=== PATIENT | male | born 1970 | race Caucasian/White ===

== ENCOUNTER 2019-04-26 07:35 | Inpatient (IN) ==
--- NOTE | 2019-04-03 12:53 | PAT Medication Instructions ---
Medication Instructions Date of Service April 03, 2019 Home Medications Men's Daily Gummies 1 dose PO QAM hydrochlorothiazide 50 mg PO QAM lisinopril 10 mg PO QAM metformin 500 mg PO BID DO NOT take the morning of surgery Men's Daily Gummies 1 dose PO QAM hydrochlorothiazide 50 mg PO QAM lisinopril 10 mg PO QAM metformin 500 mg PO BID Take evening before surgery metformin 500 mg PO BID Other Notes If you have any questions please call us at [phone] or [phone] or [phone] or [phone]
--- NOTE | 2019-04-04 12:50 | Anesthesiology Consultation ---
Date of Service April 04, 2019 Assessment & Plan (1) Encounter for pre-operative examination: - Check BSG AM DOS Chart Review Chart Review: Acceptable Risk for Surgery and Patient seen in Pre Admission Testing Teaching & Discussion Pre-Anesthesia Teaching/Discussion Notes: Instructed NPO after midnight before surgery,except medications with 15 cc of water. Medication instructions provided according to the PAT guidelines. History Surgery Operation Date: 04/26/19 10:25 Proposed Procedures p L3-S1 Decompression and Fusion, Spinal Cord Monitoring - David Kaba DO Height/Weight Height: 5 ft 8 in Weight: 109.9 kg Allergies Allergy/AdvReac Type Severity Reaction Status Date / Time hydrocodone Allergy Intermediate vomiting Verified 03/29/19 09:01 oxycodone Allergy Mild Vomiting Verified 03/29/19 09:01 Medications Home Medications Medication Instructions Recorded Confirmed Last Taken Men's Daily Gummies 1 dose PO QAM 08/29/18 03/29/19 09/04/18 hydrochlorothiazide 50 mg PO QAM 08/29/18 03/29/19 09/04/18 lisinopril 10 mg PO QAM 03/29/19 03/29/19 Unknown metformin 500 mg PO BID 03/29/19 03/29/19 Unknown Nexium 04/04/19 Unknown Past Medical History Medical History Acid reflux CONTROLLED Diabetes mellitus, type 2 NIDDM Hypertension Kidney stones Lumbar herniated disc B/L LE RADICULOPATHY Obesity Sleep apnea CPAP BUT NOT USING SINCE WEIGHT LOSS Exercise / Class Metabolic Activity II 4-5 Yardwork/Stairs/Walk up hill Past Family History Family History Family/Other Family hx of colon cancer paternal uncle Past Surgical History Surgical History History of colonoscopy 09/05/18: MAC sedation at [facility] History of laminectomy x2 History of lithotripsy x2 History of sinus surgery 11/17/10: LMA placed at [facility] History of tooth extraction WISDOM TEETH Past Anesthesia History No Family Hx of Anesthesia Complications and Other "Slow to wake" after initial back surgery- no issues with subsequent surgeries. History of PONV No Hx of PONV and Hx of Motion Sickness (OCCASIONAL) Social History Smoking Status: Never smoker Do You Dip or Chew Tobacco: No Hx Alcohol Use: Yes Alcohol type: beer alcohol intake frequency: holidays/special occasions only Hx Substance Use: No substance use type: does not use Review of Systems Patient denies chest pain, shortness of breath, cough, wheezing, palpitations. Physical Exam Vital Signs VITALS BP 112/71 P 79 TEMP 98.0 SP02 94%RA RESP 16 PHYSICAL Full neck and c-spine range of motion. Full TMJ range of motion. TMD 3 finger breaths Mallampati Score 2 Dentition: intact Lungs: clear throughout to auscultation Cardiac: regular rate and rhythm, no murmurs noted Spine: normal Carotid arteries: negative bruit Extremities: no edema Short thick neck Testing Laboratory Results 01/24/19 HGBA1C 6.6% (pt then started on Metformin) 04/04/19 13:15 04/04/19 13:15 04/04/19 04/04/19 04/04/19 13:15 13:15 Unknown PT 10.3 INR 1.0 APTT 25.5 Urine Color Yellow Urine Appearance Clear Urine pH 6.5 Ur Specific Bruni 1.022 Urine Protein Negative Urine Glucose (UA) Negative Urine Ketones Negative Urine Nitrite Negative Ur Leukocyte Esterase Negative Blood Type A Positive Antibody Screen NEGATIVE Electrocardiogram Date: 01/23/19 SR at 84bpm. Chest X-Ray Date: 04/04/19 No acute process. Hypoinflation with bronchovascular crowding.
--- NOTE | 2019-04-04 13:44 | XRay Report ---
XR chest Pre-admission PA/Lat HISTORY: 48 years-old Male pat preoperative exam. No acute chest complaints COMPARISON: [facility] 08/27/2018 TECHNIQUE: PA and lateral views of the chest FINDINGS: Cardiomediastinal and hilar silhouettes are within normal limits. The lungs are hypoinflated with bro nchovascular crowding. There is no pneumothorax, pleural effusion, focal airspace consolidation or ov ert pulmonary edema. The bones of the chest appear grossly intact. Degenerative changes are noted thr oughout the spine. IMPRESSION: 1. No acute process. 2. Hypoinflation with bronchovascular crowding. The above report was generated using voice recognition software. It may contain grammatical, syntax o r spelling errors. Electronically signed by: Ovidio Mesa M.D. 04/04/2019 1:42 PM
[2019-04-04 14:02] LABS: Basophils # (auto) 0.03 K/uL (0-0.2); Basophils % (auto) 0.6 %; Eosinophils % (auto) 1.9 %; Hematocrit (blood only) 41.7 % (42-52); Hemoglobin 14.8 g/dL (14.0-18.0); Immature Granulocytes # (auto) 0.06 K/uL (0.00-0.02); Immature Granulocytes % (auto) 1.1 %; Lymphocytes # (auto) 1.46 K/uL (1.2-3.4); Lymphocytes % (auto) 27.1 %; Mean Corpuscular Hgb Conc 35.5 g/dL (32-36); Mean Corpuscular Volume 87.4 fL (80-100); Monocytes # (auto) 0.69 K/uL (0.11-0.59); Monocytes % (auto) 12.8 %; Neutrophils # (auto) 3.05 K/uL (1.4-6.5); Neutrophils % (auto) 56.5 %; Platelet Count 249 K/uL (130-400); RDW Coefficient of Variation 13.2 % (11.5-14.5); RDW Standard Deviation 42.3 fL (36.4-46.3); Red Blood Count 4.77 M/uL (4.7-6.1); White Blood Count 5.39 K/uL (4.8-10.8)
[2019-04-04 14:20] LABS: Appearance Urine Clear (Clear); Bilirubin Urine Negative (Negative); Blood Urine Negative (Negative); Color Urine Yellow; Glucose Urine UA Negative (Negative); Ketones Urine Negative (Negative); Leukocyte Esterase Urine Negative (Negative); Nitrite Urine Negative (Negative); Protein Urine Negative (Negative); Specific Gravity Urine 1.022 (1.000-1.030); Urobilinogen Urine Negative (Negative); pH Urine 6.5 (4.5-7.5)
[2019-04-04 14:28] LABS: BUN Creatinine Ratio 17.2 (10-20); Creatinine Clr Calc Pharmacy 106.4 ml/min; Est GFR (African American) 100.8; Est GFR (Non-African American) 86.9; Potassium 4.2 mmol/L (3.5-5.1)
[2019-04-04 15:05] LABS: Partial Thromboplastin Ratio 0.9; Partial Thromboplastin Time 25.5 Seconds (21.0-31.0); Prothrombin Time 10.3 Seconds (9.0-12.0)
[~2019-04-26 07:35] MED LIST: ACETAMINOPHEN 500 MG TAB PO SCH; CEFAZOLIN 2000MG 2,000 MG/15 ML SYR IV SCH; CeleBREX 200 MG CAP PO SCH; GABAPENTIN 300 MG x 2 PO SCH; LR 15ML/HR IV SCH; PROPOFOL IV EMULSION 10 MG/ML 100 ML VIAL IV ONE
[2019-04-26] MEDS ORDERED: fentaNYL citrate 100 MCG/2 ML VIAL ONE ×2 (08:51→13:33)
[2019-04-26] MEDS ORDERED: MIDAZOLAM HCL 1 MG/ML 2ML VIAL ONE (08:51)
[2019-04-26] MEDS ORDERED: HYDROmorphone INJ 2 MG/ML SYR/VIAL ONE (08:52)
--- NOTE | 2019-04-26 10:23 | History & Physical Bridge Note ---
Date of Service April 26, 2019 History & Physical Bridge Note I have examined the patient, reviewed the History & Physical and in the interval since the performance of the History & Physical I have noted the following changes of clinical significance: no changes noted
--- NOTE | 2019-04-26 10:24 | History & Physical Report ---
Date of Service April 26, 2019 Assessment & Plan (1) Spinal stenosis, lumbar region with neurogenic claudication: Decompression and fusion L3-S1 Present on Admission?: Yes History of Present Illness Chief Complaint: Back and bilateral leg pain Primary Care Provider: Bernie Fonseca DO This is a 48-year-old male who presents with chronic persistent back and bilateral leg pain. After failing extensive course of nonoperative care is here for surgical intervention. Allergies Allergy/AdvReac Type Severity Reaction Status Date / Time hydrocodone Allergy Intermediate vomiting Verified 04/26/19 08:03 oxycodone Allergy Mild Vomiting Verified 04/26/19 08:03 Home Medications Home Medications Medication Instructions Recorded Confirmed Type Men's Daily Gummies 1 dose PO QAM 08/29/18 04/26/19 History hydrochlorothiazide 50 mg PO QAM 08/29/18 03/29/19 History lisinopril 10 mg PO QAM 03/29/19 03/29/19 History metformin 500 mg PO BID 03/29/19 04/26/19 History Nexium 04/04/19 History esomeprazole magnesium [Nexium 20 mg PO DAILY 04/26/19 04/26/19 History 24HR] Past Med/Surg History Medical History Acid reflux CONTROLLED Diabetes mellitus, type 2 NIDDM Kidney stones Lumbar herniated disc B/L LE RADICULOPATHY Obesity Sleep apnea CPAP BUT NOT USING SINCE WEIGHT LOSS Family History Family/Other Family hx of colon cancer paternal uncle Social History Preferred Language: Swiss Communication Ability: Effective 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
[2019-04-26] MEDS ORDERED: BUPIVACAINE/EPINEPHRINE 0.5% MPF 1:200,000 30 ML VIAL ONE (10:28)
[2019-04-26] MEDS ORDERED: BACITRACIN INJ 50,000 UNIT VIAL ONE (10:28)
[2019-04-26] MEDS ORDERED: ONDANSETRON INJ 2 MG/ML 2 ML VIAL IV PRN ×2 (10:35→16:46)
[2019-04-26] MEDS ORDERED: HYDROmorphone INJ 1 MG/ML SYRINGE IV PRN (10:35)
[2019-04-26] MEDS ORDERED: ATROPINE SULFATE 0.1 MG/ML 10ML SYR IV PRN (10:35)
[2019-04-26] MEDS ORDERED: LABETALOL HCL IV 5 MG/ML 20ML IV PRN (10:35)
[2019-04-26] MEDS ORDERED: PROPOFOL IV EMULSION 10 MG/ML 20 ML VIAL IV ONE (11:26)
[2019-04-26] MEDS ORDERED: ONDANSETRON INJ 2 MG/ML 2 ML VIAL ONE (11:26)
[2019-04-26] MEDS ORDERED: LIDOCAINE HCL 2% 2 ML VIAL/AMP(20MG/ML) INFIL ONE (11:26)
[2019-04-26] MEDS ORDERED: LARYING-O-JET KIT (LTA) ONE (11:26)
[2019-04-26] MEDS ORDERED: ROCURONIUM BROMIDE 10 MG/ML 5 ML VIAL ONE (11:26)
[2019-04-26] MEDS ORDERED: GLYCOPYRROLATE 0.2 MG/ML VIAL ONE (11:26)
[2019-04-26] MEDS ORDERED: NEOSTIGMINE METHYLSULFATE 1 MG/ML 10ML VIAL ONE (11:26)
[2019-04-26] MEDS ORDERED: DEXAMETHASONE SOD INJ 4 MG/ML VIAL ONE (11:26)
[2019-04-26] MEDS ORDERED: FLOSEAL HEMOSTATIC MATRIX 10ML TOP ONE (11:44)
--- NOTE | 2019-04-26 13:40 | Fluoroscopy Report ---
FL lumbar spine 2-3V CLINICAL HISTORY: 48 years-old Male presenting with L3-S1 DECOMPRESSION AND FUSION WITH POSSIBLE INTE RBODIES. TECHNIQUE: 1 fluoroscopic image(s) recorded as part of an intraoperative procedure. COMPARISON: None. FINDINGS/IMPRESSION: Bilateral posterior transpedicular screw and gianni fixation of L3-S1 with interbody spacers at L4-5 and L5-S1. Laminectomy defects at L4-L5. Please see surgical report for further details. Fluoroscopy dosage (mGy): 15.45. Fluoroscopy time: 25.8 seconds. Number or time of high level fluoroscopy (HLF), digital spot, or digital subtraction images: 0. Electronically signed by: Jean Jacobs M.D. 04/26/2019 1:38 PM
--- NOTE | 2019-04-26 13:55 | Operative Report ---
Post Operative Report Pre & Post Diagnosis Operation Date: 04/26/19 09:25 Pre-Op Diagnosis: LUMBAR SPINAL STENOSIS W/NEUROGENIC CLAUDICATION Post-Op Diagnosis: LUMBAR SPINAL STENOSIS W/NEUROGENIC CLAUDICATION Procedure Operation Date: 04/26/19 09:25 Actual Procedure#1 lumbar #1 revision decompression L3-4 L4-5 L5-S1 with bilateral medial facetectomies foraminotomies. #2 posterior spinal fusion L3-4 L4-5 L5-S1 per #3 placement posterior segmental instrumentation L3-4 L4-5 L5-S1. #4 interbody fusion L4-5 L5-S1 per #5 placement of titanium 12 x 26 m cage L4-5 L5-S1 per #6 placement of local autograft in the posterior lateral gutters. #7 placement Feese collagen sponge, master graft in the posterior lateral gutters ostial amp and interbody space. Surgeon David Kaba DO [employer] None Estimated Blood Loss 450 Findings See Below Patient is 5 foot 8 inches tall weighing 106.4 kg with a BMI of 35.7. The patient's body habitus added significant technical difficulty requiring her deepest retractors and adding at least 25% increase in operative time. Specimens None Indications This is a 48-year-old male resents with recurrent back and leg pain. After failing extensive course of nonoperative care is here for surgical intervention. Description of Procedure Patient was met with identified and informed consent obtained. He was then taken to the operative suite underwent intubation and placed in a prone position the Mark table on top of the Carlitos frame. All bony prominences well-padded eyes inspected to ensure no external pressure placed upon the peer at this point the lumbar spine was prepped and draped in normal sterile fashion. Sharp dissection with the assistance of Bovie cautery was performed down to and exposing the remaining lamina transverse processes of L3-L4-L5 and sacral ala bilaterally. From a caudal cephalad fashion a revision complete laminectomy of L5 L4 and L3 was performed including bilateral medial facetectomies and foraminotomies to address stenosis. Pedicle fusion and placed in L3 L4-5 with assistance of fluoroscopy the appropriate size gianni placed. By way of a transforaminal approach on the left complete discectomy of L4-5 S1 was performed in plate graded to subcortical mean bone and a 12 x 26 mm titanium cage filled with ostium bone graft tapped in position. Then proceeded L for [address] of a transforaminal approach and left complete discectomy performed in plate graded to subcortical bleeding bone and again a 12 x 26 mm titanium cage filled with osteo-amp bone graft tapped in position. The rods were then locked in final position bilaterally. The transverse processes of L3-L4-L5 and sacral ala bur to subcortical bleeding bone. Infuse collagen sponge master graft and local autograft placed in the posterior lateral gutters. 15 round MICHELET drain inserted. The incision was then closed with 1 Vicryl in the fascia 2-0 Vicryl substantially and 4 Monocryl for final closure. Steri-Strips dressings placed. Patient will continue PACU stable disc. Please note spinal cord monitoring used throughout the entire procedure no changes noted. I attest to the content of the Intraoperative Record and any orders documented therein. Any exceptions are noted below.
--- NOTE | 2019-04-26 15:59 | Anesthesiology Progress Note ---
Date of Service April 26, 2019 Anesthesia Post Procedure Vital Signs Vital Signs: Temp Pulse Pulse Resp BP Pulse Ox 04/26/19 15:50 85 13 114/81 95 04/26/19 15:40 98 H 16 115/89 94 04/26/19 15:30 78 15 125/91 92 04/26/19 15:20 36.9 C 86 13 103/90 94 04/26/19 15:10 85 20 108/78 95 04/26/19 15:00 88 20 109/84 98 04/26/19 14:50 83 20 136/101 H 94 04/26/19 14:40 90 21 154/99 H 95 04/26/19 14:30 89 19 133/105 H 96 04/26/19 14:20 86 20 149/102 H 93 04/26/19 14:14 36.4 C L 90 15 142/109 H 92 04/26/19 11:51 36.9 C 100 H 18 117/79 93 Pain Intensity Lower Back: Pain Intensity: 0 Transfer of Care Handoff Completed per policy Notes Mental Status: alert / awake / arousable Patient Amnestic to Procedure: Yes Nausea / Vomiting: adequately controlled Pain: adequately controlled Airway Patency, RR, SpO2: stable & adequate BP & HR: stable & adequate Hydration State: stable & adequate Anesthetic Complications: no major complications apparent
[2019-04-26] MEDS ORDERED: PROMETHAZINE HCL 12.5 MG in SODIUM CHLORIDE 0.9% 50 ML IV PRN (16:46)
[2019-04-26] MEDS ORDERED: ACETAMINOPHEN 1,000 MG/100 ML VIAL IV PRN (16:46)
[2019-04-26] MEDS ORDERED: MAGNESIUM HYDROXIDE SUSP 30 ML UDC PO PRN (16:46)
[2019-04-26] MEDS ORDERED: DO NOT ADMINISTER PNEUMOCOCCAL VACCINE PRN (16:46)
[2019-04-26] MEDS ORDERED: BISACODYL 10 MG SUPP PR PRN (16:46)
[2019-04-26] MEDS ORDERED: LORazepam 0.5 MG TAB PO PRN (16:46)
[2019-04-26] MEDS ORDERED: FAMOTIDINE 20 MG TAB PO PRN (16:46)
[2019-04-26] MEDS ORDERED: SOD PHOSPHATE/SOD BIPHOSPHATE ENEMA 132 ML BTL PR PRN (16:46)
[2019-04-26] MEDS ORDERED: HYDROmorphone INJ 0.5 MG/0.5 ML SYR IV PRN (16:46)
[2019-04-26] MEDS ORDERED: METOCLOPRAMIDE HCL INJ 5 MG/ML 2 ML VIAL IV PRN (16:46)
[2019-04-26] MEDS ORDERED: ALUMINUM/MAGNESIUM SUSP 30 ML UDC PO PRN (16:46)
[2019-04-26] MEDS ORDERED: DO NOT ADMINISTER FLU VACCINE PRN (16:46)
[2019-04-26] MEDS ORDERED: ONDANSETRON 4 MG TAB PO PRN (16:46)
[2019-04-26] MEDS ORDERED: LORazepam 0.5 MG/1 ML VIAL IV PRN (16:46)
[2019-04-26] MEDS: SODIUM CHLORIDE 0.9% 1000ML 1,000 ML IV SCH (17:18)
[2019-04-26] MEDS: KETOROLAC 30 MG/ML VIAL IV SCH ×2 (17:18→22:09)
[2019-04-26] MEDS: CEFAZOLIN 2000MG 2,000 MG/15 ML SYR IV SCH (18:59)
[2019-04-26] MEDS: DOCUSATE SODIUM/SENNA 50/8.6MG TAB PO SCH (20:22)
[2019-04-26] MEDS: TRAMADOL HCL 50 MG TABLET PO PRN (21:11)
[2019-04-27] MEDS: SODIUM CHLORIDE 0.9% 1000ML 1,000 ML IV SCH (00:01)
[2019-04-27] MEDS: KETOROLAC 30 MG/ML VIAL IV SCH ×2 (04:04→11:49)
[2019-04-27] MEDS: CEFAZOLIN 2000MG 2,000 MG/15 ML SYR IV SCH (04:04)
[2019-04-27] MEDS: POLYETHYLENE (MIRALAX) 17 GM PACK PO SCH ×3 (05:10→19:31)
[2019-04-27 06:56] LABS: Hematocrit (blood only) 34.6 % (42-52); Immature Granulocytes # (auto) 0.08 K/uL (0.00-0.02); Immature Granulocytes % (auto) 0.4 %; Lymphocytes # (auto) 0.84 K/uL (1.2-3.4); Lymphocytes % (auto) 4.5 %; Mean Corpuscular Hgb Conc 34.7 g/dL (32-36); Mean Corpuscular Volume 88.7 fL (80-100); Mean Platelet Volume 8.8 fL (7.4-10.4); Monocytes # (auto) 1.65 K/uL (0.11-0.59); Monocytes % (auto) 8.9 %; Neutrophils # (auto) 15.93 K/uL (1.4-6.5); Neutrophils % (auto) 86.2 %; Platelet Count 218 K/uL (130-400); RDW Coefficient of Variation 13.3 % (11.5-14.5)
[2019-04-27 07:28] LABS: BUN Creatinine Ratio 18.3 (10-20); Calcium 8.6 mg/dl (8.5-10.1); Creatinine Clr Calc Pharmacy 91.9 ml/min; Est GFR (African American) 86.1; Est GFR (Non-African American) 74.3; Potassium 4.7 mmol/L (3.5-5.1)
[2019-04-27] MEDS: PANTOprazole 40 MG TAB PO SCH (08:48)
[2019-04-27] MEDS: LISINOPRIL 10 MG TAB PO SCH (08:48)
[2019-04-27] MEDS: hydroCHLOROthiazide 25 MG TAB PO SCH (08:49)
[2019-04-27] MEDS: TRAMADOL HCL 50 MG TABLET PO PRN ×3 (08:54→20:24)
--- NOTE | 2019-04-27 10:38 | Orthopedic Progress Note ---
Date of Service April 27, 2019 Assessment & Plan (1) Spinal stenosis, lumbar region with neurogenic claudication: This time we will continue physical therapy monitor his MICHELET output anticipate discharge home Monday. Present on Admission?: Yes Subjective Back pain is controlled leg symptoms markedly improved. Physical Exam Physical Exam: Patient is in the chair at the bedside. He appears comfortable. Is good strength testing. Results & Data Vital Signs (Past 12 Hours) Vital Signs Temp Pulse Resp BP Pulse Ox 04/27/19 08:00 36.6 C 87 16 125/82 97 04/27/19 03:44 36.5 C 86 19 105/68 92 04/26/19 23:02 36.3 C L 91 H 19 121/65 93
[2019-04-27] MEDS: ACETAMINOPHEN 500 MG TAB PO PRN (19:31)
[2019-04-27] MEDS: DOCUSATE SODIUM/SENNA 50/8.6MG TAB PO SCH (20:25)
[2019-04-28] MEDS: TRAMADOL HCL 50 MG TABLET PO PRN ×2 (00:11→07:53)
[2019-04-28] MEDS: POLYETHYLENE (MIRALAX) 17 GM PACK PO SCH ×4 (00:11→18:03)
[2019-04-28] MEDS: ACETAMINOPHEN 500 MG TAB PO PRN ×3 (05:09→21:38)
--- NOTE | 2019-04-28 07:28 | Orthopedic Progress Note ---
Date of Service April 28, 2019 Assessment & Plan (1) Spinal stenosis, lumbar region with neurogenic claudication: Patient is stable postoperative day #2. We will continue with GI DVT prophylaxis. His MICHELET drain is still putting out a fair amount we will have him continue to work with mobilization and likely discharge him to home tomorrow. Subjective Patient was seen this morning in room 315 postoperative day #2. He is having some tightness in the back itself but no pain going down the legs. He did quite a bit of walking yesterday and thinks he may have overdone it. He denies any nausea. He has not yet had a bowel movement. He denies any other numbness, tingling, or paresthesias. Physical Exam Physical Exam: On exam patient is alert and oriented. His abdomen soft nontender his calves are supple nontender strength and sensation both intact dressings clean dry and intact. Results & Data Vital Signs (Past 12 Hours) Vital Signs Temp Pulse Resp BP Pulse Ox 04/27/19 23:33 36.5 C 85 16 105/65 97
[2019-04-28] MEDS: hydroCHLOROthiazide 25 MG TAB PO SCH (08:51)
[2019-04-28] MEDS: LISINOPRIL 10 MG TAB PO SCH (08:51)
[2019-04-28] MEDS: PANTOprazole 40 MG TAB PO SCH (08:51)
[2019-04-28] MEDS: DOCUSATE SODIUM/SENNA 50/8.6MG TAB PO SCH (20:49)
[2019-04-28] MEDS ORDERED: Nursing to Pharmacy Communication ONE (21:52)
[2019-04-29] MEDS: ACETAMINOPHEN 500 MG TAB PO PRN ×2 (05:33→16:37)
[2019-04-29] MEDS: PANTOprazole 40 MG TAB PO SCH (08:50)
[2019-04-29] MEDS: hydroCHLOROthiazide 25 MG TAB PO SCH (08:50)
[2019-04-29] MEDS: LISINOPRIL 10 MG TAB PO SCH (08:50)
[2019-04-29] MEDS: TRAMADOL HCL 50 MG TABLET PO PRN ×3 (08:52→17:20)
--- NOTE | 2019-04-29 11:43 | Discharge Summary ---
Date of Service April 29, 2019 Admission HPI Per Admitting Provider This is a 48-year-old male who presents with chronic persistent back and bilateral leg pain. After failing extensive course of nonoperative care is here for surgical intervention. Principal Diagnosis Lumbar spinal stenosis with neurogenic claudication Discharge Data Allergies Allergy/AdvReac Type Severity Reaction Status Date / Time hydrocodone Allergy Intermediate vomiting Verified 04/26/19 08:03 oxycodone Allergy Mild Vomiting Verified 04/26/19 08:03 Consultations 04/26/19 16:46 Consult Case Management - Discharge Planning Routine Procedures Performed Operation Date: 04/26/19 09:25 Actual Procedures p L3-S1 Decompression and Fusion, Spinal Cord Monitoring(Not Applicable) - David Kaba DO Ordered Studies 04/26/19 09:25 FL fluoroscopy <1hr Routine FL lumbar spine 2-3V Routine Hospital Course (1) Spinal stenosis, lumbar region with neurogenic claudication: Patient underwent multilevel lumbar decompression fusion tolerated this well was taken to the orthopedic floor postoperative. Postop day #1 he was up and ambulating progressed to postop day #2. MICHELET drain decreasing appropriately. Pain well controlled. Subsequently discharged home. Discharge orders and in structions can be found chart for further review. Total Time Total Time Spent Total Time Spent (In Minutes): 20 minutes Discharge Plan Discharge Items Patient Disposition: Home - Self-Care Reason For Visit: LUMBAR SPINAL STENOSIS W/NEUROGENIC CLAUDICATION Discharge Diagnosis: lumbar stenosis Discharge Goals: Decrease discomfort Activity: Per 'Additional Instructions' section Non-emergency contact: Primary Care Provider Call non-emergency contact if: you have any medication questions Follow-up/Referrals: Bernie Fonseca DO [Primary Care Provider] - Diet: Regular Addtl Provider Instructions: ACTIVITY RECOMMENDATIONS: SELF CARE INSTRUCTIONS AFTER THORACIC/LUMBAR FUSIONS 1. You may walk to your tolerance. It is good exercise for your legs and back. Expect some back and intermittent leg aches and pains. 2. You may perform "counter-top" level activities (make a sandwich, edna with a project, etc.). 3. No bending or lifting of more than 10 pounds or back twisting of any nature (roll like a log when turning in bed). 4. You may ride in a car for 20-30 minutes at a time. No driving until after your first visit with your doctor. 5. Frequent changes of position and restricting sitting to 30 minutes at a time will help limit the amount of back spasms and stiffness you may experience. 6. You may discontinue the use of ambulatory aids (cane, crutches, etc.) once your strength and confidence allow. 7. You may glass wool blanket machine feeder the shower and let water strike your incision when you arrive home at least once daily. Do not take a tub bath, sit in a hot tub or go into a swimming pool until after your first recheck in the office. SPECIAL CARE INSTRUCTIONS: VERY IMPORTANT TO READ AND REVIEW A. Your surgical incision has been closed with a cosmetic suture under the skin that will dissolve in about 6 weeks. In 14 days, you can use a pair of clean scissors and cut the suture that is left outside of the skin at the ends of your incision. 1. The small skin tapes can be removed 7 days after surgery if they have not fallen off by that point. 2. You may keep the wound open to air as much as possible to promote healing after post-op day number 5 unless told otherwise by your doctor. 3. If you think the wound looks like it is becoming infected (redness or worsening drainage) and/or you are experiencing fever, chill or worsening back pain and muscle spasms, contact the office so that we may evaluate you as soon as possible. B. Complications are uncommon, but please contact us if you have any signs or symptoms of: 1. wound infection (fever higher than 102.5 degrees F, redness, separation of wound, drainage, or increasing pain from the incision) 2. blood clots in legs (pain, swelling, redness and warmth in legs) 3. urinary tract infection (fever higher than 102.5 degrees F, burning upon urination or increased frequency of urination) 4. nerve problems (inability to walk on your toes or heels, numbness, loss of bowel or bladder control) 5. any other symptoms that concern you C. Please call the office at if you have any concerns or ques tions about your operation or recovery. D. No smoking! Smoking drastically decreases the chance of a solid fusion. E. Do not take any anti-inflammatory medications (Indocin, Advil, Motrin, Aspirin, Naprosyn, etc.) as these may inhibit the chance of a solid fusion. Tylenol is okay to take for pain. MANAGING PAIN AFTER SPINAL SURGERY 1. Narcotic medication is intended for short-term use and will be provided for surgical pain. Surgical pain usually lasts for a period of 4-6 weeks. Narcotic medication includes Percocet, Vicodin, Darvocet, Tylenol #3 or Lortab. 2. Longer-term pain is more appropriately treated with non-narcotic medication such as Tylenol ES. 3. Muscle spasm is not appropriately treated with narcotics. Muscle relaxers such as Soma, Flexeril or Skelaxin can be used along with Tylenol ES. 4. Remember that we all live with some "aches and pains". This is not unusual or uncommon after an injury or as we get older. a. Back pain is expected and may include muscle spasms for 4 to 6 weeks after surgery. The pain should gradually improve. If the pain worsens for no apparent reason, please contact the office. b. Intermittent leg pain may also be experienced and should not be concerned about unless it worsens for no apparent reason. If so, please contact the office. 5. We will provide appropriate medication within the normal guidelines of their prescribed use. We will also be very cautious and aware of potential abuse and extended duration of patients' medication needs. a. Pain medications are for your comfort and to assist with sleep and rest so that the tissue can heal. They are not provided in order to return to normal activity and should not be used through the day. To do so or worsening pain at night can result from ongoing tissue damage and development of tolerance to the prescribed medicine. 6. Please allow 2-3 days to process refills. Prescriptions will not be mailed but must be picked up at the office. FOLLOW UP VISIT: Keep your scheduled follow-up appointment. Any questions, please call the office at . Prescriptions: New tramadol 50 mg Tablet 50 mg PO Q4H PRN (Reason: Pain) Qty: 30 RF: 0 Continued metformin 500 mg Tablet 500 mg PO BID RF: 0 lisinopril 10 mg Tablet 10 mg PO QAM RF: 0 Nexium RF: 0 esomeprazole magnesium [Nexium 24HR] 20 mg Capsule,Delayed Release(Dr/Ec) 20 mg PO DAILY RF: 0 hydrochlorothiazide 50 mg Tablet 50 mg PO QAM RF: 0 Men's Daily Gummies 200 mcg Tablet,Chewable 1 dose PO QAM RF: 0 Stand-Alone Forms: [facility], [facility] Discharge Orders: Discharge Order (Routine); Ordered 04/29/19 Ordered By: David Kaba Admission Data Admit Date/Time: 04/26/19 14:00 Attending Provider: David Kaba Admit Provider: David Kaba Primary Care Provider: Bernie Fonseca Service: Surgical Services Other Interventions: Discharge Summary Assessment (RN) Last Done: 04/29/19 11:30
== END 2019-04-29 17:53 | disposition home or self-care (01) | DRG 455 ==
LOC: ASU 07:35 → 3E 14:00

== ENCOUNTER 2025-03-24 14:20 | Observation (INO) ==
--- NOTE | 2025-03-24 14:41 | Emergency Department Note ---
Impression & Plan Chest pain Admission ED Provider Note HPI: History obtained from patient. The patient is a 54-year-old gentleman who presents the emergency department with a chief complaint of transient episodes of chest pain today. Patient states that when he was exerting himself turning down a swimming pool today he was getting substernal episodes of chest pain. Patient states these would last 1 to 2 minutes and then resolve when he rested. Patient states at the time he did feel short of breath. On arrival here to the ED the patient states he no longer is having the pain, he does admit to a very light "pressure". Patient is otherwise hemodynamically stable on arrival, he appears to be in no acute distress on my initial assessment. ROS: - Per HPI Differential Diagnosis: ACS, pulmonary embolism, aortic dissection, gastritis, pleuritis, costochondritis, amongst other potential pathologies. *Outpatient medications and allergy history reviewed. PE: General: Alert HEENT: Normocephalic, trachea midline Eyes: Extraocular eye movement is intact, no scleral erythema Pulmonary: Clear to auscultation bilaterally, no wheezing Cardio: Regular rate and rhythm GI: Abdomen is soft to palpation : No suprapubic tenderness MSK: No evidence of trauma or malformation of the extremities, no edema Skin: No evidence of rash Neuro: Alert, no focal deficits Psychiatric: Cooperative INDEPENDENT INTERPRETATIONS: court recording monitor: (As interpreted by myself): - An order was placed for continuous cardiac monitoring - Patient was noted to be in sinus rhythm with a rate of 95 EKG: (As interpreted by myself): Rate: 86 Rhythm: Normal sinus rhythm Intervals: Within normal limits ST changes: No ST elevation Time: 1429 Chest x-ray: (As interpreted by myself): No acute disease Interventions provided in ED: - Aspirin Medical Decision Making: IV was established and lab work obtained, patient was placed on night monitor. Lab work shows a mild leukocytosis of 15.12, hemoglobin is normal, platelet count is normal, D-dimer was obtained that is within normal limits, low suspicion for PE. CMP does not show any evidence of any critical findings. Troponin is negative. EKG per my interpretation does not show any evidence of any acute ischemic changes. Chest x-ray does not show any evidence of acute disease. On my reassessment the patient states he still having some mild chest pressure on the left side of his chest. At this time he states he would prefer admission versus outpatient management which I think is reasonable given the exertional nature of his chest pain. His heart score is 4. He does have multiple risk factors including hyperlipidemia, obesity, and diabetes. I discussed the patient's presentation with the on-call hospitalist for [facility], Dr. Roberts, the patient was placed for admission in stable condition for further care. Consultants/Discussions held with other healthcare providers: - Hospitalist, Dr. Roberts Disposition discussion held by myself with: - Patient and patient's at the bedside Diagnosis: 1. Chest pain, acute, exertional 2. History of diabetes 3. History of hyperlipidemia Disposition: Admission Shimon Khan DO Emergency Medicine Past Med/Surg History Problem List (Updated 03/24/25 @ 16:03 by Shimon Khan DO) Chest pain (Acute) Hypertriglyceridemia Fatty liver Sensorineural hearing loss (SNHL) of both ears Idiopathic polyneuropathy Lumbosacral radiculopathy Kidney stones Abnormal AST and ALT (Chronic) Hypertension (Chronic) Acid reflux (Chronic) Lumbar herniated disc (Chronic) B/L LE RADICULOPATHY Erectile dysfunction Tinnitus Sleep apnea (Chronic) CPAP. "Severe sleep apnea/hypopnea with respiratory event index of 31 and an oxygen edu of 61%." Obesity (Chronic) Spinal stenosis, lumbar region with neurogenic claudication Type 2 diabetes mellitus (Chronic) Medical History (Updated 03/24/25 @ 16:03 by Shimon Khan DO) Nephrolithiasis Peripheral neuropathy History of COVID-19 11/2021>resolved 11/2023, home test, not hosp; mild symptoms for 1 day>resolved History of kidney stones Surgical History Hx of ventral hernia repair 03/2023 [facility] History of back surgery 01/31/23>T3 CAGING/FUSION DONE [facility] IN [place] History of tonsillectomy History of lumbar fusion (01/31/23) L2-L3 H/O left knee surgery Status post surgery (12/20/19) R SI joint fusions Slow to wake up after anesthesia History of lumbar fusion (04/26/19) revision decompression L3-L4, L4-L5, L5-S1 w/ b/l facetectomies foraminotomies, post fusion L3-S1, plmt post instrumentation L3-S1, interbody fusion L4-L5, L5-S1 History of sinus surgery (11/2010) 11/17/10: LMA placed at [facility] History of colonoscopy 09/05/18: MAC sedation at [facility] History of lithotripsy x2 History of tooth extraction WISDOM TEETH History of laminectomy x2 Family History Mother Depression Hypertension Environmental allergies Grandmother Diabetes Grandfather Diabetes Father Kidney stones Stroke Uncle Colorectal cancer Prostate cancer Myocardial infarction Aunt Myocardial infarction Other No family history of adverse response to anesthesia No family history of bleeding disorder Denies family history of Breast cancer Social History (Updated 11/15/24 @ 08:30 by Pino Parker DO) Smoking Status: Never smoker Second Hand Exposure: Yes (hx growing up); Do You Dip or Chew Tobacco: No; Hx Alcohol Use: Yes (very rare use-couple per year) Hx Substance Use: No Preferred Language: Bulgarian Communication Ability: Effective Visual Impairment: No Limitations Hearing Ability: Normal Revival Clerk Required: No Beliefs That Will Affect Care: None marital status: Current Living Situation: Spouse and Family Current Living Situation Comment: AND SON 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 caffeine: Yes (Soda occasionally. ) during the past year weight has: remained stable Dental Care, Regularly: Yes Physical Activity Frequency: Daily Seatbelt Use: always Sunscreen Use: Yes Assistive Devices: CPAP Allergies Allergies Allergy/AdvReac Type Severity Reaction Status Date / Time Tetracyclines Allergy Mild Rash Verified 11/15/24 07:57 codeine AdvReac Mild Vomiting Verified 11/15/24 07:57 hydrocodone AdvReac Mild vomiting Verified 11/15/24 07:57 oxycodone AdvReac Mild Vomiting Verified 11/15/24 07:57 Home Meds Home Medications Medication Instructions Recorded Confirmed nystatin 100,000 unit/mL oral 100,000 unit PO QID 03/24/25 03/24/25 suspension Previous Rx's Medication Instructions Recorded CPAP Machine #1 ea 01/28/20 lancets 30 gauge (OneTouch Delica #100 ea 01/30/20 Lancets) blood sugar diagnostic #100 ea 04/13/22 blood-glucose meter (OneTouch #1 ea 04/13/22 Ultra2 Meter) metformin 500 mg tablet 500 mg PO BID #180 tabs 07/29/24 atorvastatin 10 mg tablet 10 mg PO DAILY #90 tabs 08/16/24 lisinopril 5 mg tablet 5 mg PO QAM #90 tabs 08/16/24 semaglutide 2 mg/dose (8 mg/3 mL) 2 mg (0.75 mL) subcut Q7D #3 mL 02/05/25 subcutaneous pen injector hydrochlorothiazide 50 mg tablet 50 mg PO QAM #90 tabs 03/11/25 Results & Data (ED) Vital Signs Vital Signs - 24 hr 03/24/25 14:23 03/24/25 14:33 03/24/25 14:36 Pulse Rate 102 H 95 H 93 H Respiratory Rate 22 18 Respiratory Effort / Characteristics Non-Labored Spontaneous Respiratory Depth Normal Respiratory Pattern Regular Blood Pressure 138/81 Blood Pressure Mean 100 Pulse Oximetry 95 96 Oxygen Delivery Method Room Air Room Air Sepsis Recent Fever Within 48 Hours No Sepsis New/Unexplained Change in Mental Status N/A Sepsis Action Taken by Nursing No Action Required 03/24/25 15:24 Pulse Rate Respiratory Rate Respiratory Effort / Characteristics Respiratory Depth Respiratory Pattern Blood Pressure Blood Pressure Mean Pulse Oximetry Oxygen Delivery Method Room Air Sepsis Recent Fever Within 48 Hours Sepsis New/Unexplained Change in Mental Status Sepsis Action Taken by Nursing Laboratory Data 03/24/25 14:37 03/24/25 14:37 Lab Results 03/24/25 03/24/25 Range/Units 14:37 14:37 WBC 15.12 H (4.8-10.8) K/ul RBC 5.45 (4.70-6.10) M/uL Hgb 16.4 (14.0-18.0) g/dl Hct 46.8 (42.0-52.0) % MCV 85.9 (80.0-100.0) fL MCH 30.1 (25.0-34.0) pg MCHC 35.0 (32.0-36.0) g/dL RDW Std Deviation 39.8 (36.4-46.3) fL RDW Coeff of Adrien 13.0 (11.5-14.5) % Plt Count 262 (130-400) K/uL MPV 8.3 L (9.4-12.4) fL Immature Gran % (Auto) 2.1 % Neut % (Auto) 81.6 % Lymph % (Auto) 10.5 % Toombs % (Auto) 5.4 % Eos % (Auto) 0.2 % Baso % (Auto) 0.2 % Neut # (Auto) 12.35 H (1.40-6.50) K/uL Lymph # (Auto) 1.59 (1.20-3.40) K/uL Toombs # (Auto) 0.81 H (0.11-0.59) K/uL Eos # (Auto) 0.03 (0.00-0.50) K/uL Baso # (Auto) 0.03 (0.00-0.20) K/uL Immature Gran # (Auto) 0.31 H (0.01-0.20) K/uL PT 10.8 (9.0-12.0) Seconds INR 1.0 (0.9-1.1) D-Dimer < 190 Cancelled (0-500) ug/L FEU Sodium 135 L (136-145) mmol/L Potassium 3.8 (3.5-5.1) mmol/L Chloride 103 (98-107) mmol/L Carbon Dioxide 25 (21-32) mmol/L Anion Gap 7 (3-11) BUN 29 H (6-23) mg/dl Creatinine 0.95 (0.6-1.4) mg/dl Est Cr Clr Drug Dosing 98.1 ml/min eGFR 94.53 BUN/Creatinine Ratio 30.5 H (10-20) Glucose 163 H (70-99(Fasting)) mg/dl Calcium 9.7 (8.6-10.3) mg/dl Total Bilirubin 0.5 (0.2-1.0) mg/dl AST 20 (13-39) U/L ALT 65 H (7-52) U/L Alkaline Phosphatase 53 (34-104) U/L Troponin I High Sens 4.5 (0-20) pg/ml Total Protein 6.9 (6.0-8.3) gm/dl Albumin 3.9 (3.4-5.0) gm/dl Globulin 3.0 (2.5-4.0) gm/dl Albumin/Globulin Ratio 1.3 (0.9-2) Lipase 57 (11-82) U/L Imaging Data Radiologist's Impression: Chest X-Ray 03/24/25 14:36 XR chest 1V portable CLINICAL HISTORY: Chest pain, nonspecific COMPARISON STUDY: 12/13/2019 FINDINGS: Heart size and pulmonary vasculature are normal. No effusion, consolidation, or pneumothorax. IMPRESSION: No acute findings. ACT 112: Negative or not required by law. Electronically signed by: Tushar Kelsey M.D. 03/24/2025 2:52 PM Discharge Plan Visit Data Chief Complaint: Chest Pain Stated Complaint: CHEST PAIN, SOB, DIZZY ED Provider: Shimon Khan Discharge Problem: Chest pain Patient Disposition: Admitted As Inpatient Condition: Fair Forms Stand Alone Forms: [facility] Prescriptions Prescriptions: No Action (DME) lancets [OneTouch Delica Lancets] [facility] See Rx Instructions .ROUTE .MEDSUPPLY Qty: 100 2RF Rx Instructions: Testing once daily. metformin 500 mg tablet 500 mg PO BID Qty: 180 1RF semaglutide 2 mg/dose (8 mg/3 mL) pen injector 2 mg subcut Q7D Qty: 3 2RF Rx Instructions: hydrochlorothiazide 50 mg tablet 50 mg PO QAM Qty: 90 3RF (DME) CPAP Machine Misc See Dose Instructions .ROUTE .MEDSUPPLY Qty: 1 0RF Dose Instruction: As directed Rx Instructions: auto titration CPAP- pressure to start at 10, supplies (DME) blood sugar diagnostic Strip See Rx Instructions .ROUTE .MEDSUPPLY Qty: 100 0RF Rx Instructions: Testing once daily. (DME) blood-glucose meter [OneTouch Ultra2 Meter] Misc See Rx Instructions .ROUTE .MEDSUPPLY Qty: 1 0RF Rx Instructions: As directed lisinopril 5 mg tablet 5 mg PO QAM Qty: 90 1RF atorvastatin 10 mg tablet 10 mg PO DAILY Qty: 90 3RF nystatin 100,000 unit/mL suspension 100,000 unit PO QID Referrals Referrals: Petros Monsalve CRNP [Nurse Practitioner] -
--- NOTE | 2025-03-24 14:54 | XRay Report ---
XR chest 1V portable CLINICAL HISTORY: Chest pain, nonspecific COMPARISON STUDY: 12/13/2019 FINDINGS: Heart size and pulmonary vasculature are normal. No effusion, consolidation, or pneumothora x. IMPRESSION: No acute findings. ACT 112: Negative or not required by law. Electronically signed by: Tushar Kelsey M.D. 03/24/2025 2:52 PM
[2025-03-24 14:55] LABS: Basophils # (auto) 0.03 K/uL (0.00-0.20); Basophils % (auto) 0.2 %; Eosinophils # (auto) 0.03 K/uL (0.00-0.50); Eosinophils % (auto) 0.2 %; Hematocrit (blood only) 46.8 % (42.0-52.0); Hemoglobin 16.4 g/dl (14.0-18.0); Immature Granulocytes # (auto) 0.31 K/uL (0.01-0.20); Immature Granulocytes % (auto) 2.1 %; Lymphocytes # (auto) 1.59 K/uL (1.20-3.40); Lymphocytes % (auto) 10.5 %; Mean Corpuscular Hemoglobin 30.1 pg (25.0-34.0); Mean Corpuscular Volume 85.9 fL (80.0-100.0); Mean Platelet Volume 8.3 fL (9.4-12.4); Monocytes # (auto) 0.81 K/uL (0.11-0.59); Monocytes % (auto) 5.4 %; Neutrophils # (auto) 12.35 K/uL (1.40-6.50); Neutrophils % (auto) 81.6 %; Platelet Count 262 K/uL (130-400); RDW Standard Deviation 39.8 fL (36.4-46.3); Red Blood Count 5.45 M/uL (4.70-6.10); White Blood Count 15.12 K/ul (4.8-10.8)
[2025-03-24 15:15] LABS: Albumin Globulin Ratio 1.3 (0.9-2); Albumin Level 3.9 gm/dl (3.4-5.0); BUN Creatinine Ratio 30.5 (10-20); Bilirubin,Total 0.5 mg/dl (0.2-1.0); Calcium 9.7 mg/dl (8.6-10.3); Creatinine Clr Calc Pharmacy 98.1 ml/min; Potassium 3.8 mmol/L (3.5-5.1); Total Protein 6.9 gm/dl (6.0-8.3)
[2025-03-24 15:20] LABS: Troponin I High Sensitivity 4.5 pg/ml (0-20)
[2025-03-24 15:26] LABS: D Dimer < 190 ug/L FEU (0-500); Prothrombin Time 10.8 Seconds (9.0-12.0)
--- NOTE | 2025-03-24 15:58 | History & Physical Report ---
Date of Service March 24, 2025 Assessment & Plan (1) Chest pain: (2) Hypertension: (3) Type 2 diabetes mellitus: (4) Fatty liver: Plan This patient is a 54-year-old male with a history of fatty liver, hypertriglyceridemia, RADHA on CPAP, obesity, DM2, HTN, and peripheral neuropathy who presents to the ER with exertional chest pain. 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 He also felt short of breath with it and that his heart was pounding. He did feel lightheaded at 1 point as well when the episode was going on and just did not feel right. In the ER, he continues to have some very light pressure with radiation to the left jaw but not nearly as severe as previous and by the time I saw him, this was resolved. His troponin initially was negative, EKG without ischemic changes, D-dimer negative, leukocytosis at 15 is nonspecific. No other symptoms. He will be admitted for a workup for chest pain and ischemic testing. #Chest pain-does present as typical angina and he certainly has risk factors for CAD. Leukocytosis is likely stress response due to acute issue as there is no signs of infection. CXR negative, D-dimer negative making PE virtually ruled out. He has been using nystatin for oral thrush-if cardiac issues ruled out, could be esophageal candidiasis and could switch to fluconazole - Admit to PCU for telemetry monitoring for arrhythmias - Trend serial troponin, check stress echocardiogram in the morning - Follow ECG - Check lipid panel, A1c in the morning - He received 4 baby aspirin by EMS and will continue aspirin 81 mg p.o. daily, continue home statin at same dose of 10 mg for now #HTN/hypertriglyceridemia-BPs are controlled and he reports he is only on HCTZ for kidney stones and lisinopril for renal protection given diabetes - Continue home HCTZ, lisinopril, and atorvastatin - ALT chronically elevated likely secondary to known fatty liver #DMII/neuropathy-no acute issues - Holding home semaglutide, metformin #RADHA on CPAP-can bring in CPAP from home #Overweight, BMI 29.8-no acute issues - He is on semaglutide at home DVT prophylaxis-Lovenox SQ Disposition-admit to telemetry unit History of Present Illness Chief Complaint: Chest pain Primary Care Provider: Bernie Fonseca, This patient is a 54-year-old male with a history of fatty liver, hypertriglyceridemia, RADHA on CPAP, obesity, DM2, HTN, and peripheral neuropathy who presents to the ER with exertional chest pain. 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 He also felt short of breath with it and that his heart was pounding. He did feel lightheaded at 1 point as well when the episode was going on and just did not feel right. In the ER, he continues to have some very light pressure with radiation to the left jaw but not nearly as severe as previous and by the time I saw him, this was resolved. His troponin initially was negative, EKG without ischemic changes, D-dimer negative, leukocytosis at 15 is nonspecific. No other symptoms. He will be admitted for a workup for chest pain and ischemic testing. Allergies Allergy/AdvReac Type Severity Reaction Status Date / Time Tetracyclines Allergy Mild Rash Verified 11/15/24 07:57 codeine AdvReac Mild Vomiting Verified 11/15/24 07:57 hydrocodone AdvReac Mild vomiting Verified 11/15/24 07:57 oxycodone AdvReac Mild Vomiting Verified 11/15/24 07:57 Home Medications Medication Instructions Recorded Confirmed Type CPAP Machine #1 ea 01/28/20 11/15/24 Rx lancets 30 gauge (Oneuch Delica #100 ea 01/30/20 11/15/24 Rx Lancets) blood sugar diagnostic #100 ea 04/13/22 11/15/24 Rx blood-glucose meter ([employer] #1 ea 04/13/22 11/15/24 Rx Ultra2 Meter) metformin 500 mg tablet 500 mg PO BID #180 tabs 07/29/24 03/24/25 Rx atorvastatin 10 mg tablet 10 mg PO DAILY #90 tabs 08/16/24 03/24/25 Rx lisinopril 5 mg tablet 5 mg PO QAM #90 tabs 08/16/24 03/24/25 Rx semaglutide 2 mg/dose (8 mg/3 mL) 2 mg (0.75 mL) subcut Q7D #3 mL 02/05/2511/06 Rx subcutaneous pen injector hydrochlorothiazide 50 mg tablet 50 mg PO QAM #90 tabs 03/11/25 03/24/25 Rx nystatin 100,000 unit/mL oral 100,000 unit PO QID 03/24/25 03/24/25 History suspension Past Med/Surg History Problem List Chest pain (Acute) Hypertriglyceridemia Fatty liver Sensorineural hearing loss (SNHL) of both ears Idiopathic polyneuropathy Lumbosacral radiculopathy Kidney stones Abnormal AST and ALT (Chronic) Hypertension (Chronic) Acid reflux (Chronic) Lumbar herniated disc (Chronic) B/L LE RADICULOPATHY Erectile dysfunction Tinnitus Sleep apnea (Chronic) CPAP. "Severe sleep apnea/hypopnea with respiratory event index of 31 and an oxygen edu of 61%." Obesity (Chronic) Spinal stenosis, lumbar region with neurogenic claudication Type 2 diabetes mellitus (Chronic) Medical History Nephrolithiasis Peripheral neuropathy History of COVID-19 11/2021>resolved 11/2023, home test, not hosp; mild symptoms for 1 day>resolved History of kidney stones Surgical History Hx of ventral hernia repair 03/2023 [facility] History of back surgery 01/31/23>T3 CAGING/FUSION DONE [facility] IN [place] History of tonsillectomy History of lumbar fusion (01/31/23) L2-L3 H/O left knee surgery Status post surgery (12/20/19) R SI joint fusions Slow to wake up after anesthesia History of lumbar fusion (04/26/19) revision decompression L3-L4, L4-L5, L5-S1 w/ b/l facetectomies foraminotomies, post fusion L3-S1, plmt post instrumentation L3-S1, interbody fusion L4-L5, L5-S1 History of sinus surgery (11/2010) 11/17/10: LMA placed at [facility] History of colonoscopy 09/05/18: MAC sedation at [facility] History of lithotripsy x2 History of tooth extraction WISDOM TEETH History of laminectomy x2 Family History Mother Depression Hypertension Environmental allergies Grandmother Diabetes Grandfather Diabetes Father Kidney stones Stroke Uncle Colorectal cancer Prostate cancer Myocardial infarction Aunt Myocardial infarction Other No family history of adverse response to anesthesia No family history of bleeding disorder Denies family history of Breast cancer Social History Smoking Status: Never smoker Second Hand Exposure: Yes (hx growing up); Do You Dip or Chew Tobacco: No; Hx Alcohol Use: Yes (very rare use-couple per year) Hx Substance Use: No Preferred Language: Mexican Communication Ability: Effective Visual Impairment: No Limitations Hearing Ability: Normal 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 caffeine: Yes (Soda occasionally. ) during the past year weight has: remained stable Dental Care, Regularly: Yes Physical Activity Frequency: Daily Seatbelt Use: always Sunscreen Use: Yes Assistive Devices: CPAP Review of Systems Review of Systems: All systems reviewed & are unremarkable except as noted in HPI & below Recently treated for oral thrush Physical Exam Constitutional: WD/WN, vitals as above Eyes: PERRL, conjunctivae normal, anicteric sclerae ENMT: external ear and nose normal, oropharynx normal Neck: trachea midline, no thyromegaly Respiratory: normal respiratory effort, lungs clear to auscultation Cardiovascular: RRR, no murmur, no edema Chest (Breasts): Chest: normal inspection of chest Gastrointestinal (Abdomen): normal bowel sounds, soft, nontender, no hepatosplenomegaly Musculoskeletal: Extremities: extremities normal to inspection; no cyanosis and no clubbing Skin: no rashes, warm and dry Neurologic: moves all extremities and awake; no focal motor deficits Psychiatric: A+Ox3, euthymic affect Lymphatic: no lymphedema Results & Data Results & Data Vital Signs (Past 12 Hours) Vital Signs Pulse Resp BP Pulse Ox O2 Del Method 03/24/25 15:24 Room Air 03/24/25 14:36 93 H 18 96 Room Air 03/24/25 14:33 95 H 03/24/25 14:23 102 H 22 138/81 95 Room Air Laboratory Results CBC, PT/INR, BMP, D-dimer, LFTs, lipase reviewed Diagnostic Findings Chest x-ray image personally reviewed by me and agree with the following report: Chest X-Ray 03/24/25 14:36 XR chest 1V portable CLINICAL HISTORY: Chest pain, nonspecific COMPARISON STUDY: 12/13/2019 FINDINGS: Heart size and pulmonary vasculature are normal. No effusion, consolidation, or pneumothorax. IMPRESSION: No acute findings. ECG Additional Comments: ECG on 03/24/2025 at 1429 with normal sinus rhythm, rate 86, no ischemic changes Code Status & VTE Plan Code Status Full code VTE Prophylaxis Plan VTE Prophylaxis will be ordered: Yes PG Care Time/CCT Total # of Minutes Spent Total Time Spent with Patient: Total time spent is greater than 50% in coordination of care (as documented) at patient's floor/unit and/or counseling patient: Coding Level of Care Code 10554 INT INP/OBS CARE 3/75MIN Diagnoses Chest pain R07.9 Hypertension I10 Type 2 diabetes mellitus with diabetic microalbuminuria, without long-term current use of insulin E11.29; R80.9 Diabetes mellitus complication detail: with diabetic microalbuminuria Diabetes mellitus complication status: with kidney complications Diabetes mellitus assisted insulin use: without intermediate designer use Fatty liver K76.0 (3) Type 2 diabetes mellitus Diabetes mellitus complication detail: with diabetic microalbuminuria Diabetes mellitus complication status: with kidney complications Diabetes mellitus assisted insulin use: without assisted use Qualified Code(s): E11.29 - Type 2 diabetes mellitus with other diabetic kidney complication; R80.9 - Proteinuria, unspecified
[2025-03-24] MEDS: ASPIRIN CHEW 324 MG PO STA (16:01)
--- NOTE | 2025-03-24 18:35 | Electrocardiogram Report ---
Test Reason : Blood Pressure : */* mmHG Vent. Rate : 86 BPM Atrial Rate : 86 BPM P-R Int : 136 ms QRS Dur : 82 ms QT Int : 344 ms P-R-T Axes : 19 43 27 degrees QTcB Int : 411 ms Normal sinus rhythm Normal ECG When compared with ECG of 19-Aug-2022 13:31, No significant change was found Confirmed by Rober Kuo ([id number]) on 03/24/2025 6:35:10 PM Referred By: Confirmed By: Rober Kuo
[2025-03-24] MEDS ORDERED: POLYETHYLENE (MIRALAX) 17 GM PACK PO PRN (20:17)
[2025-03-24] MEDS ORDERED: GLUCOSE 40% GEL 15 GM TUBE PO PRN (20:17)
[2025-03-24] MEDS ORDERED: GLUCAGON FOR INJ 1 MG VIAL SQ PRN (20:17)
[2025-03-24] MEDS ORDERED: NITROGLYCERIN SL 0.4 MG/TAB TAB SL PRN (20:17)
[2025-03-24] MEDS ORDERED: GLUCOSE 10 TAB/TUBE PO PRN (20:17)
[2025-03-24] MEDS ORDERED: DEXTROSE 50% 50 ML SYRINGE IV PRN (20:17)
[2025-03-24] MEDS ORDERED: ALUMINUM/MAGNESIUM SUSP 30 ML UDC PO PRN (20:17)
[2025-03-24] MEDS ORDERED: CARBOHYDRATES FOR HYPOGLYCEMIA PO PRN (20:17)
[2025-03-24] MEDS ORDERED: ONDANSETRON INJ 2 MG/ML 2 ML VIAL IV PRN (20:17)
[2025-03-24] MEDS ORDERED: MoRPHine SULFATE 2 MG/ML CARP IV PRN (20:17)
[2025-03-24] MEDS ORDERED: ACETAMINOPHEN 325 MG TAB PO PRN (20:17)
[2025-03-24] MEDS: ENOXAPARIN INJ 40 MG/0.4 ML SYR SQ SCH (21:48)
[2025-03-24] MEDS: NYSTATIN SUSP 500,000 U/5 ML UDC PO SCH (21:49)
[2025-03-24] MEDS: INSULIN ASPART PER UNIT CHARGE SC SCH (21:49)
[2025-03-25 06:34] LABS: Basophils # (auto) 0.03 K/uL (0.00-0.20); Basophils % (auto) 0.3 %; Eosinophils # (auto) 0.09 K/uL (0.00-0.50); Eosinophils % (auto) 0.8 %; Hematocrit (blood only) 43.7 % (42.0-52.0); Hemoglobin 15.4 g/dl (14.0-18.0); Immature Granulocytes % (auto) 1.7 %; Lymphocytes % (auto) 16.2 %; Mean Corpuscular Hemoglobin 30.7 pg (25.0-34.0); Mean Corpuscular Hgb Conc 35.2 g/dL (32.0-36.0); Mean Corpuscular Volume 87.1 fL (80.0-100.0); Mean Platelet Volume 8.3 fL (9.4-12.4); Monocytes # (auto) 0.87 K/uL (0.11-0.59); Monocytes % (auto) 7.4 %; Neutrophils # (auto) 8.64 K/uL (1.40-6.50); Neutrophils % (auto) 73.6 %; Platelet Count 240 K/uL (130-400); RDW Coefficient of Variation 13.2 % (11.5-14.5); RDW Standard Deviation 42.3 fL (36.4-46.3); Red Blood Count 5.02 M/uL (4.70-6.10); White Blood Count 11.73 K/ul (4.8-10.8)
[2025-03-25 06:52] LABS: Albumin Globulin Ratio 1.3 (0.9-2); Albumin Level 3.7 gm/dl (3.4-5.0); BUN Creatinine Ratio 27.4 (10-20); Bilirubin,Total 0.6 mg/dl (0.2-1.0); Calcium 9.2 mg/dl (8.6-10.3); Chol HDL Ratio 3.2 (0-5); Creatinine Clr Calc Pharmacy 109.5 ml/min; Globulin 2.8 gm/dl (2.5-4.0); Magnesium 2.2 mg/dl (1.7-2.4); Potassium 4.2 mmol/L (3.5-5.1); Total Protein 6.5 gm/dl (6.0-8.3)
[2025-03-25 07:07] LABS: Thyroid Stimulating Hormone 1.421 uIu/ml (0.300-4.500)
[2025-03-25 08:02] LABS: Estimated Average Glucose 148 mg/dl; Hemoglobin A1C 6.8 % (4.5-5.6)
[2025-03-25] MEDS: lisinopril 5 MG TAB PO SCH (08:04)
[2025-03-25] MEDS: hydroCHLOROthiazide 25 MG TAB PO SCH (08:04)
[2025-03-25] MEDS: ASPIRIN 81 MG ECTAB PO SCH (08:04)
[2025-03-25] MEDS: ATORVASTATIN 10 MG TAB PO SCH (08:04)
[2025-03-25] MEDS: FAMOTIDINE 20MG IV PUSH 20 MG/5 ML SYR IV SCH (09:07)
--- NOTE | 2025-03-25 10:43 | Electrocardiogram Report ---
Test Reason : Blood Pressure : */* mmHG Vent. Rate : 71 BPM Atrial Rate : 71 BPM P-R Int : 144 ms QRS Dur : 80 ms QT Int : 384 ms P-R-T Axes : 18 36 37 degrees QTcB Int : 417 ms Normal sinus rhythm Normal ECG When compared with ECG of 24-Mar-2025 14:29, No significant change was found Confirmed by Rober Kuo ([id number]) on 03/25/2025 10:42:44 AM Referred By: REFERRED SELF Confirmed By: Rober Kuo
[2025-03-25 11:22] VITALS: RESP 17; TEMP 97.9; O2SAT 97
--- NOTE | 2025-03-25 12:15 | XCELERA ---
[id number]
[2025-03-25] MEDS: ALUMINUM/MAGNESIUM SUSP 30 ML UDC PO STA (13:07)
[2025-03-25] MEDS: OPTIRAY 320 125ml IV ONE (14:50)
--- NOTE | 2025-03-25 15:00 | CT Scan Report ---
CT angio chest PE protocol CT DOSE: 851.95 mGy.cm HISTORY: chest pain,SOB. TECHNIQUE: Multiple CTA images of the chest were obtained after the intravenous administration of 120 ml Optiray. Coronal and sagittal MIPS were obtained from the axial data set and were submitted for review. All measurements were obtained according to NASCET criteria. A dose lowering technique was u tilized adhering to the principles of ALARA. COMPARISON STUDY: None FINDINGS: There is no pulmonary consolidation or pleural effusion. No pneumothorax. No enlarged adeno debbie. No pericardial effusion. There are coronary artery calcifications. No thoracic aortic dissecti on or aneurysm. No pulmonary embolism. No acute osseous findings. There are mild thoracic spine degen erative changes. IMPRESSION: No pulmonary embolism seen. ACT 112: Negative or not required by law. The above report was generated using voice recognition software. It may contain grammatical, syntax o r spelling errors. Electronically signed by: Tushar Kelsey M.D. 03/25/2025 2:59 PM
--- NOTE | 2025-03-25 15:59 | Discharge Summary ---
Discharge Summary Date of Service March 25, 2025 Principal Dx & Hospital Course #1 = Principal Diagnosis (1) Chest pain: (2) Hypertension: (3) Type 2 diabetes mellitus: (4) Fatty liver: Plan This patient is a 54-year-old male with a history of fatty liver, hypertriglyceridemia, RADHA on CPAP, obesity, DM2, HTN, and peripheral neuropathy who presents to the ER with exertional chest pain. 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 He also felt short of breath with it and that his heart was pounding. He did feel lightheaded at 1 point as well when the episode was going on and just did not feel right. In the ER, he continues to have some very light pressure with radiation to the left jaw but not nearly as severe as previous and by the time I saw him, this was resolved. His troponin initially was negative, EKG without ischemic changes, D-dimer negative, leukocytosis at 15 is nonspecific. No other symptoms. He was admitted for a workup for chest pain and ischemic testing. #Chest pain-does present as typical angina and he certainly has risk factors for CAD. Leukocytosis is likely stress response due to acute issue as there is no signs of infection and this improved to the day after admission. CXR negative, D-dimer negative making PE virtually ruled out however a CT angiogram of the chest was performed on the day of discharge which was normal. It did show coronary artery calcifications. Serial troponins were negative x 4. Stress echocardiogram achieved 12.1 METS and was completely normal. He actually had chest pain before during and after his stress test but had yet a completely normal test. He has been using nystatin for oral thrush and question if he also has a component of esophageal candidiasis causing esophageal spasm. He was treated with IV Pepcid and Maalox and did have improvement in the chest pain. He still had some residual at the time of discharge, but was much better than previous. Lipid panel was excellent and HgbA1c controlled at 6.8%. - Stable for discharged home with aspirin 81 mg daily and continue same dose of atorvastatin 10 mg daily - Take fluconazole 200 mg p.o. once daily x 10 days for presumed esophageal candidiasis along with Protonix 40 mg p.o. once daily x 2-week course - If pain does not improve or if worsens, return to the hospital for further evaluation; otherwise, if improving, presumed esophagitis as cause of symptoms #HTN/hypertriglyceridemia-BPs are controlled and he reports he is only on HCTZ for kidney stones and lisinopril for renal protection given diabetes. He frequently will have some lightheadedness especially with getting up quickly and this may be from a high dose of HCTZ. -Consider lowering home dose of HCTZ to 25 mg daily-he will discuss with his PCP -Continue lisinopril, and atorvastatin - ALT chronically elevated likely secondary to known fatty liver #DMII/neuropathy-no acute issues -Resume home semaglutide, and resume metformin after holding for [address] #RADHA on CPAP-continue CPAP from home #Overweight, BMI 29.8-no acute issues - He is on semaglutide at home DVT prophylaxis-Lovenox SQ Disposition-stable for discharge to home. Care discussed extensively with his at the bedside on the day of discharge Notes For Next Care Provider Medication Changes From Visit Added Protonix and fluconazole Added aspirin 81 mg daily Admission HPI Per Admitting Provider This patient is a 54-year-old male with a history of fatty liver, hypertriglyceridemia, RADHA on CPAP, obesity, DM2, HTN, and peripheral neuropathy who presents to the ER with exertional chest pain. 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 He also felt short of breath with it and that his heart was pounding. He did feel lightheaded at 1 point as well when the episode was going on and just did not feel right. In the ER, he continues to have some very light pressure with radiation to the left jaw but not nearly as severe as previous and by the time I saw him, this was resolved. His troponin initially was negative, EKG without ischemic changes, D-dimer negative, leukocytosis at 15 is nonspecific. No other symptoms. He will be admitted for a workup for chest pain and ischemic testing. Discharge Exam Constitutional WD/WN, vitals as above ENMT external ear and nose normal, oropharynx normal Neck trachea midline, no thyromegaly Respiratory normal respiratory effort, lungs clear to auscultation Cardiovascular RRR, no murmur, no edema Chest (Breasts) Chest: normal inspection of chest Additional Comments: No tenderness to palpation over chest wall Gastrointestinal (Abdomen) normal bowel sounds, soft, nontender, no hepatosplenomegaly Musculoskeletal Extremities: extremities normal to inspection; no cyanosis and no clubbing Skin no rashes, warm and dry Neurologic moves all extremities and awake; no focal motor deficits Psychiatric A+Ox3, euthymic affect Lymphatic no lymphedema Discharge Plan Discharge Items Patient Disposition: Home - Self-Care Reason For Visit: CHEST PAIN Discharge Diagnosis: Chest pain-suspect esophageal spasm, esophageal candidiasis Condition on Discharge: Good Activity: Resume your previous activity Non-emergency contact: Primary Care Provider Call non-emergency contact if: you have any medication questions, your symptoms worsen, your pain is not controlled, your pain is worsening, your pain is unusual for you and your pain is concerning for you Follow-up/Referrals: Bernie Fonseca DO [Primary Care Provider] - (Follow-up within 1 to 2 weeks) Diet: Carb Consistent or DM2 Addtl Attending Provider Instructions: You are admitted with chest pain and had a normal workup to rule out heart attack and blood clots in the lungs. Because of the recent thrush in your mouth, it is possible that you also have thrush in your esophagus and had some spasm of the esophagus that caused your symptoms. Please take fluconazole 200 mg once daily x 10 days along with Protonix 40 mg once daily for 2 weeks for this. If your pain returns or worsens or does not go away, please return to the hospital for further evaluation. Because there were some coronary artery calcifications seen in your heart on the CT scan, it is recommended that you remain on an aspirin 81 mg by mouth once daily-this can be bought [id number]. Pending Studies at Discharge: No Stand-Alone Forms: My [employer], Smoking Cessation Medications and DC Order Prescriptions: New fluconazole 200 mg tablet 200 mg PO DAILY Qty: 10 0RF pantoprazole [Protonix] 40 mg tablet,delayed release (DR/EC) 40 mg PO QAM Qty: 14 0RF aspirin 81 mg Tablet,Delayed Release (Dr/Ec) 81 mg PO QAM Qty: 30 0RF Continued (DME) lancets [OneTouch Delica Lancets] 30 gauge misc See Rx Instructions .ROUTE .MEDSUPPLY Qty: 100 2RF Rx Instructions: Testing once daily. semaglutide 2 mg/dose (8 mg/3 mL) pen injector 2 mg subcut Q7D Qty: 3 2RF Rx Instructions: hydrochlorothiazide 50 mg tablet 50 mg PO QAM Qty: 90 3RF (DME) CPAP Machine Misc See Dose Instructions .ROUTE .MEDSUPPLY Qty: 1 0RF Dose Instruction: As directed Rx Instructions: auto titration CPAP- pressure to start at 10, supplies (DME) blood sugar diagnostic Strip See Rx Instructions .ROUTE .MEDSUPPLY Qty: 100 0RF Rx Instructions: Testing once daily. (DME) blood-glucose meter [OneTouch Ultra2 Meter] [facility] See Rx Instructions .ROUTE .MEDSUPPLY Qty: 1 0RF Rx Instructions: As directed lisinopril 5 mg tablet 5 mg PO QAM Qty: 90 1RF atorvastatin 10 mg tablet 10 mg PO DAILY Qty: 90 3RF nystatin 100,000 unit/mL suspension 100,000 unit PO QID Held metformin 500 mg tablet 500 mg PO BID Qty: 180 1RF Hold Instructions: Resume on 03/27/25. Hold until the evening of 03/27 due to an interaction with the contrast IV dye you received with your CT scan Discharge Orders: Discharge Order (Routine); Ordered 03/25/25 Ordered By: Sabine Sheehan/Other Patient Handouts: Managing Type 2 Diabetes, How to Check Your Blood Sugar Admission Data Admit Date/Time: 03/24/25 17:10 Attending Provider: Sabine Roberts Admit Provider: Sabine Roberts Primary Care Provider: Bernie Fonseca Other Providers: Sabine Roberts Hospital Stay Data Consultations 03/24/25 15:45 ED Decision to Admit Stat Diagnostic Imagining Performed 03/25/25 12:58 CT angio chest PE protocol Stat Pending Results Patient Have Any Pending Studies at Discharge: No Discharge Instructions Given to Patient (Per Discharging Provider) You are admitted with chest pain and had a normal workup to rule out heart attack and blood clots in the lungs. Because of the recent thrush in your mouth, it is possible that you also have thrush in your esophagus and had some spasm of the esophagus that caused your symptoms. Please take fluconazole 200 mg once daily x 10 days along with Protonix 40 mg once daily for 2 weeks for this. If your pain returns or worsens or does not go away, please return to the hospital for further evaluation. Because there were some coronary artery calcifications seen in your heart on the CT scan, it is recommended that you remain on an aspirin 81 mg by mouth once daily-this can be bought [id number]. Total Time Total Time Spent Total Time Spent (In Minutes): 45 minutes Total Time Includes: Examination of the Patient, Discharge Planning, Medication Reconciliation, Communication With Other Providers (Cardiology regarding stress test) and Other Coding Level of Care Code 24239 INP/OBS DISCH >30 MIN Diagnoses Chest pain R07.9 Hypertension I10 Type 2 diabetes mellitus with diabetic microalbuminuria, without long-term current use of insulin E11.29; R80.9 Diabetes mellitus equipment operator intermodal yard insulin use: without equipment operator intermodal yard use Diabetes mellitus complication status: with kidney complications Diabetes mellitus complication detail: with diabetic microalbuminuria Fatty liver K76.0
[2025-03-25 16:33] VITALS: BP 106/64; PULSE 83
== END 2025-03-25 16:43 | disposition home or self-care (01) ==
LOC: 2S 14:20 → ED 14:20 → 2S 20:05